=== PATIENT | male | born 1950 | race Caucasian/White ===

== ENCOUNTER → 2020-06-02 | Outpatient (CLI) | payer MEDICARE, BC | END | disposition home or self-care (01) | LOC: STAR 08:57 | PROVIDERS: ATTEND Anesthesiology | DX: Z01.818 Encounter for other preprocedural examination (principal); Z11.59 Encounter for screening for other viral diseases | CPT/HCPCS: 36415; 87635 ==

== ENCOUNTER 2020-06-08 06:58 | Observation (INO) | payer MEDICARE, BC ==
[~2020-06-08] VITALS: Ht 190.5 cm; Wt 90.1 kg
[2020-06-08] MEDS ORDERED: LIDOCAINE-MPF 1%, 2ML INFIL ONE (08:00)
[2020-06-08] MEDS ORDERED: CHLORHEXIDINE 15 ML UDC MM ONE (08:00)
[2020-06-08] MEDS ORDERED: CHLORHEXIDINE 15 ML UDC ONE (08:05)
[2020-06-08] MEDS: LACTATED RINGERS 1,000 ML IV SCH ×2 (08:16→19:56)
[2020-06-08] MEDS ORDERED: BUPIVACAINE LIPOSOME/PF 20ML INFIL ONE (08:27)
[2020-06-08] MEDS ORDERED: multi vit (08:32)
[2020-06-08] MEDS ORDERED: HYDR-3622 PO (08:32)
[2020-06-08] MEDS ORDERED: [UNRECOGNIZED DRUG - OTHER] (08:32)
[2020-06-08] MEDS ORDERED: GABA600T7 PO (08:32)
[2020-06-08] MEDS ORDERED: IBUP-1223 PO (08:32)
[2020-06-08] MEDS: PLEASE ENTER HEIGHT AND WEIGHT MC SCH ×3 (09:00→19:57)
[2020-06-08] MEDS ORDERED: ROCURONIUM 10MG/ML,5ML ONE (09:09)
[2020-06-08] MEDS ORDERED: CEFAZOLIN 1,000 MG ONE (09:09)
[2020-06-08] MEDS ORDERED: FENTANYL PF 100 MCG/2ML ONE ×4 (09:09→13:08)
[2020-06-08] MEDS ORDERED: MIDAZOLAM 1 MG/ML, 2ML ONE (09:09)
[2020-06-08] MEDS ORDERED: DEXAMETHASONE 4 MG/ML, 1ML ONE (09:09)
[2020-06-08] MEDS ORDERED: PROPOFOL 10 MG/ML, 20ML ONE (09:09)
[2020-06-08] MEDS ORDERED: NEOSTIGMINE 1 MG/ML, 10ML ONE (09:09)
[2020-06-08] MEDS ORDERED: ONDANSETRON 2MG/ML, 2ML ONE (09:09)
[2020-06-08] MEDS ORDERED: GLYCOPYRROLATE 0.2MG/1ML, 5ML ONE (09:09)
[2020-06-08] MEDS ORDERED: SUCCINYLCHOLINE 20 MG/ML, 10ML ONE (09:09)
[2020-06-08] MEDS ORDERED: VANCOMYCIN 1,000 MG ONE (09:46)
[2020-06-08] MEDS ORDERED: BUPIVACAINE/PF-EPI 0.5% 1:200K ONE (09:46)
[2020-06-08] MEDS ORDERED: BACITRACIN 50,000 UNIT ONE (09:46)
[2020-06-08] MEDS ORDERED: BUPIVACAINE 0.25% ONE (11:30)
[2020-06-08] MEDS ORDERED: MEPERIDINE/PF 25MG/ML,1ML ONE (12:16)
[2020-06-08] MEDS ORDERED: CYCLOBENZAPRINE 10 MG TABLET PO PRN (12:30)
[2020-06-08] MEDS ORDERED: morphine SULFATE 10 MG/ML, 1ML IVPush PRN (12:30)
[2020-06-08] MEDS ORDERED: PROMETHAZINE 25 MG/ML, 1ML IM PRN (12:30)
[2020-06-08] MEDS ORDERED: MAGNESIUM HYDROXIDE 8%, 30ML UDC PO PRN (12:30)
[2020-06-08] MEDS: D5%-0.9% NACL+KCL 20MEQ 1,000 ML IV SCH ×2 (12:30→20:16)
[2020-06-08] MEDS ORDERED: DIPHENHYDRAMINE 50 MG/ML, 1ML IVPush PRN (12:30)
[2020-06-08] MEDS ORDERED: ONDANSETRON 2MG/ML, 2ML IVPush PRN (12:30)
[2020-06-08] MEDS ORDERED: PHARMACY MAY ADJ FOR RENAL FX MC PRN (12:30)
[2020-06-08] MEDS ORDERED: HYDROcodone/APAP 7.5-325MG/15ML UDC PO PRN (12:30)
[2020-06-08] MEDS ORDERED: OXYcodone 5 MG/5 ML ORAL.SOL UDC PO PRN (12:30)
[2020-06-08] MEDS ORDERED: METHOCARBAMOL 750 MG TABLET PO PRN (12:30)
[2020-06-08] MEDS ORDERED: MEPERIDINE/PF 25MG/0.5ML IVPush PRN (12:30)
[2020-06-08] MEDS ORDERED: DIAZEPAM 5 MG/ML, 2ML IVPush PRN (12:30)
[2020-06-08] MEDS ORDERED: PROMETHAZINE 25 MG/ML, 1ML IVPush PRN (12:30)
[2020-06-08] MEDS ORDERED: OXYcodone/APAP 5/325MG TABLET PO PRN (12:30)
[2020-06-08] MEDS ORDERED: SENNA/DOCUSATE TABLET PO PRN (12:30)
[2020-06-08] MEDS: FENTANYL PF 100 MCG/2ML IV PRN ×4 (12:41→13:15)
[2020-06-08] MEDS ORDERED: OXYcodone 5 MG/5 ML ORAL.SOL UDC ONE (13:02)
[2020-06-08] MEDS ORDERED: HYDROmorphone 1 MG/ML, 1ML INJ ONE (13:16)
[2020-06-08] MEDS: HYDROmorphone 1 MG/ML, 1ML INJ IVPush PRN ×2 (13:23→13:29)
[2020-06-08] MEDS ORDERED: EPHEDRINE 50 MG/ML, 1ML ONE (16:06)
[2020-06-08] MEDS: HYDROcodone/APAP 10/325 MG TABLET PO PRN ×2 (17:23→22:00)
[2020-06-08] MEDS: CEFAZOLIN PMX 1GM/50ML 50 ML IVPB SCH (18:03)
[2020-06-08] MEDS: SODIUM CHLORIDE FLUSH 10ML SYR IVF SCH (20:16)
[2020-06-08 23:32] VITALS: BP 130/72
[2020-06-09] MEDS: CEFAZOLIN PMX 1GM/50ML 50 ML IVPB SCH (02:26)
[2020-06-09] MEDS: HYDROcodone/APAP 10/325 MG TABLET PO PRN ×3 (02:30→09:14)
[2020-06-09 04:28] VITALS: BP 105/57
[2020-06-09 07:32] VITALS: BP 143/83
[2020-06-09] MEDS: SODIUM CHLORIDE FLUSH 10ML SYR IVF SCH (07:59)
[2020-06-09] MEDS: PLEASE ENTER HEIGHT AND WEIGHT MC SCH (07:59)
[2020-06-09] MEDS ORDERED: GABAPENTIN 300 MG CAPSULE PO SCH (09:00)
[2020-06-09] MEDS ORDERED: METH750T87 PO (09:10)
[2020-06-09] MEDS ORDERED: HYDR-3246 PO (09:10)
== END 2020-06-09 09:45 | disposition home or self-care (01) ==
LOC: OUT 06:58 → ORIP 12:06 → 4NE 18:33 → DCLOUNGE 06-09 09:41
PROVIDERS: ADMIT Neurological Surgery; ATTEND Neurological Surgery
DX: M48.062 Spinal stenosis, lumbar region with neurogenic claudication (principal); M51.16 Intervertebral disc disorders with radiculopathy, lumbar region; F12.90 Cannabis use, unspecified, uncomplicated; Z87.891 Personal history of nicotine dependence; Z90.5 Acquired absence of kidney; Z85.528 Personal history of other malignant neoplasm of kidney
CPT/HCPCS: 63047; 63048; 63056; 72100; 95938; 95941; 96365; 97161; 97165; C9290; G0378; J0330; J0690; J1100; J1170; J2175; J2250; J2405; J2704; J2710; J3010; J3370; J3480; J3490; J7120